=== PATIENT | female | born 1985 | race Caucasian/White ===

== ENCOUNTER 2021-01-05 12:28 | Outpatient (REF) | payer MEDICAID, SELFPAY ==
--- NOTE | ~2021-01-05 | XR_ITS ---
EXAMINATION: XR LEFT SHOULDER XR LUMBOSACRAL SPINE CLINICAL INFORMATION: Left shoulder and upper arm pain and low back pain. COMPARISON: None. TECHNIQUE: 3 views lumbosacral spine, 4 views left shoulder. FINDINGS: Left Shoulder: No bone, joint or soft tissue abnormality is seen. Lumbar Spine: Degenerative changes are present at L5-S1 with disc space narrowing, some sclerosis and osteophyte formation. At other levels, disc spaces are relatively well preserved. Some mild spondylitic endplate changes present with osteophytes at the superior endplates of L3 and L4. XR/XR lumbar spine 2-3V IMPRESSION: Normal left shoulder. Degenerative changes L5-S1.
--- NOTE | ~2021-01-05 | XR_ITS ---
EXAMINATION: XR LEFT SHOULDER XR LUMBOSACRAL SPINE CLINICAL INFORMATION: Left shoulder and upper arm pain and low back pain. COMPARISON: None. TECHNIQUE: 3 views lumbosacral spine, 4 views left shoulder. FINDINGS: Left Shoulder: No bone, joint or soft tissue abnormality is seen. Lumbar Spine: Degenerative changes are present at L5-S1 with disc space narrowing, some sclerosis and osteophyte formation. At other levels, disc spaces are relatively well preserved. Some mild spondylitic endplate changes present with osteophytes at the superior endplates of L3 and L4. XR/XR shoulder LT min 2V IMPRESSION: Normal left shoulder. Degenerative changes L5-S1.
== END 2021-01-05 12:29 | disposition home or self-care (01) ==
LOC: HO.XRAY 12:28
PROVIDERS: PCP Nurse Practitioner Family; Visit Provider Emergency Medicine
DX: S39.92XA Unspecified injury of lower back, initial encounter (principal); S49.92XA Unspecified injury of left shoulder and upper arm, initial encounter; X58.XXXA Exposure to other specified factors, initial encounter; Y93.9 Activity, unspecified; Y92.9 Unspecified place or not applicable; Y99.9 Unspecified external cause status
CPT/HCPCS: 72100; 73030

== ENCOUNTER 2022-04-05 10:16 | Outpatient (REF) | payer MEDICAID, SELFPAY ==
--- NOTE | ~2022-04-05 | MM_ITS ---
EXAMINATION: MM DIAGNOSTIC DIGITAL BREAST TOMOSYNTHESIS, BILATERAL US DIAGNOSTIC ULTRASOUND BREAST, LEFT CLINICAL INFORMATION: 36-year-old with left breast pain for-5:00 position and an marble sized palpable area noted by patient lower inner quadrant x3 months. The lifetime risk of breast cancer based on the Tyrer-Cuzick Model is 12%. COMPARISON: No prior mammography. Comparison made with targeted left breast ultrasound 07/01/2008. TECHNIQUE: Digital breast tomosynthesis is performed in both the craniocaudal and mediolateral oblique views along with computer-aided detection (CAD). Synthesized 2D images are generated from the tomosynthesis. Additional spot left CC x2 views are obtained. Ultrasound left breast is targeted to the areas of clinical concern including lower outer and lower inner breast. Grayscale imaging and color Doppler are performed without and with harmonics. FINDINGS: There are scattered areas of fibroglandular density (ACR BI-RADS breast composition Category b). There is no significant mass or architectural abnormality. Small intramammary node seen lower central left breast and small benign-appearing oval circumscribed nodule central 11:30 right breast. No abnormal calcifications. The axilla and skin contours are unremarkable. No skin thickening or coarsening of the Evan's ligaments. No mammographic correlate for patient's symptoms. Ultrasound demonstrates no cystic or solid mass or architectural abnormality. No focal duct ectasia. No skin thickening or edema tracking in soft tissue planes. Results are discussed with the patient at time of visit. MM/MM tomosynthesis diagnostic BI IMPRESSION: -No mammographic evidence of malignancy or inflammatory changes. -Unremarkable targeted left breast ultrasound. ASSESSMENT: BI-RADS 2: Benign RECOMMENDATION: 1. Patient should be managed based on the clinical impression. If clinically indicated, further evaluation may be considered with surgical consult. Decision to proceed with biopsy should be based on clinical grounds and degree of clinical concern. 2. Otherwise, routine annual screening mammography, beginning age 40, or earlier as clinical risk factors warrant. This patient's information was entered into a reminder system with a target due date for their next mammogram.
== END 2022-04-05 10:17 | disposition home or self-care (01) ==
LOC: HO.MAMMO 10:16
PROVIDERS: PCP Internal Medicine; Visit Provider Internal Medicine
DX: N64.4 Mastodynia (principal); N63.24 Unspecified lump in the left breast, lower inner quadrant
CPT/HCPCS: 76642; 77062; 77066

== ENCOUNTER 2022-11-27 22:12 | Emergency (ER) | payer MEDICAID, SELFPAY ==
--- NOTE | ~2022-11-27 | XR_ITS ---
EXAMINATION: XR KNEE, LEFT CLINICAL INFORMATION: Pain status post injury COMPARISON: None available. TECHNIQUE: Two views of the left knee. FINDINGS: Bones and soft tissues are normal. No fracture but there is a small joint effusion. Alignment is anatomic. Joint spaces are well maintained. No abnormal soft tissue calcification. XR/XR knee LT 2V IMPRESSION: Small joint effusion. No fracture.
[2022-11-27 22:21] VITALS: BP 124/76; PULSE 105; RESP 18; TEMP 36.9; O2SAT 98; BMI 32.9
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
--- NOTE | 2022-11-27 23:49 | PC.NURSE ---
leg immobilizer to be placed by CEDRIC Burleson
[2022-11-27] MEDS: oxyCODONE HCl Immed Release 5 MG TABLET 10 MG PO (23:54)
--- NOTE | 2022-11-28 00:15 | PC.NURSE ---
Discharge instructions given and explained to pt no apparent distress aox4 ambulates safely/independently s/o at bedside
== END 2022-11-28 00:15 | disposition home or self-care (01) ==
PROVIDERS: Emergency Provider Internal Medicine; PCP Internal Medicine
DX: M23.92 Unspecified internal derangement of left knee (principal); M25.562 Pain in left knee
CPT/HCPCS: 73560; 99283; 99284

== ENCOUNTER 2023-05-24 10:04 | Emergency (ER) | payer MEDICAID, SELFPAY ==
[2023-05-24 11:00] VITALS: BP 128/77; PULSE 85; RESP 16; TEMP 36; O2SAT 100; BMI 34.6
== END 2023-05-24 13:42 | disposition left against medical advice (07) ==
PROVIDERS: Emergency Provider Emergency Medicine; PCP Internal Medicine
DX: H92.02 Otalgia, left ear (principal)
CPT/HCPCS: 99281

== ENCOUNTER 2023-11-24 18:05 | Outpatient (REF) | payer MEDICAID, SELFPAY ==
[2023-11-27 17:03] LABS: C. trachomatis RNA TMA NOT DETECTED (NOT DETECTED); N. gonorrhoeae RNA TMA NOT DETECTED (NOT DETECTED)
== END 2023-11-24 18:06 | disposition home or self-care (01) ==
LOC: HO.HHCLNP 18:05
PROVIDERS: Visit Provider Registered Nurse
DX: N93.9 Abnormal uterine and vaginal bleeding, unspecified (principal)
CPT/HCPCS: 36415; 81513; 87491; 87591

== ENCOUNTER 2023-12-04 12:43 | Outpatient (REF) | payer MEDICAID, SELFPAY ==
[2023-12-04 16:14] LABS: MANUAL DIFF FLAG NO
[2023-12-04 16:26] LABS: Basophils Absolute Auto 0.1 X10*3/uL (0.0-0.2); Basophils Percent Auto 0.9 % (0-2); Eosinophils Absolute Auto 0.4 X10*3/uL (0.0-0.4); Eosinophils Percent Auto 5.7 % (0-4); Hematocrit 32.5 % (37.0-47.0); Hemoglobin 10.5 g/dl (12.0-16.0); Imm Gran Abs Auto 0.02 X10*3/uL (0.00-0.03); Imm Gran Pct Auto 0.3 % (0.0-0.4); Lymphocytes Absolute Auto 2.1 X10*3/uL (1.2-4.9); Lymphocytes Percent Auto 27.2 % (20-40); Mean Corpuscular HGB Conc 32.3 g/dl (31.0-35.0); Mean Corpuscular Hemoglobin 25.7 pg (27.0-33.0); Mean Corpuscular Volume 79.5 fL (80.0-98.0); Mean Platelet Volume 11.8 fL (9.4-12.3); Monocytes Absolute Auto 0.6 X10*3/uL (0.1-1.2); Monocytes Percent Auto 8.1 % (2-11); Neutrophils Absolute Auto 4.5 x10*3/uL (2.0-8.3); Neutrophils Percent Auto 57.8 % (45-73); Platelet Count 371 X10*3/uL (160-400); Red Blood Count 4.09 X10*6/uL (4.20-5.50); Red Cell Distribution Width 17.6 % (11.0-16.0); White Blood Count 7.8 X10*3/uL (4.8-10.8)
[2023-12-04 17:00] LABS: Erythrocyte Sedimentation Rate 11 MM/HR (0-20)
[2023-12-04 17:05] LABS: Alanine Aminotransferase 13 U/L (0-31); Albumin Level 4.2 g/dL (3.5-5.0); Alkaline Phosphatase 59 U/L (39-117); Anion Gap 13 (12-20); Aspartate Amino Transferase 14 U/L (5-31); Bilirubin Total 0.2 mg/dL (0.0-1.0); Blood Urea Nitrogen 13 mg/dL (9-16); C Reactive Protein 0.25 mg/dL (< or = 0.50); Calcium 9.5 mg/dL (8.4-10.2); Carbon Dioxide 25 mmol/L (22-29); Chloride 109 mmol/L (96-108); Cholesterol 219 mg/dL (<200); Estimated Glomerular Filt Rate > 60; Glucose Random 91 mg/dL (60-115); HDL Cholesterol 59 mg/dL (>40); LDL Cholesterol Calculated 135 mg/dL (<100); Potassium 4.6 mmol/L (3.3-5.1); Sodium 142 mmol/L (135-145); Total Protein 7.5 g/dL (6.5-8.0); Triglycerides 126 mg/dL (<150)
[2023-12-04 17:09] LABS: TSH reflex Free T4 0.71 uIU/mL (0.32-4.0)
[2023-12-04 17:21] LABS: Rheumatoid Factor < 13.0 IU/mL (<15.0)
[2023-12-05 04:26] LABS: HBS Num1 0.19 mIU/mL (0-7.99); HBc Num1 0.11 S/CO (0.00-0.79); HBsAGNum1 0.33 S/CO (0.00-0.99); HIV AB/AG Nonreactive (Nonreactive); HIV Num 1 0.04 S/CO (0.00-0.99); Hepatitis B Core Antibody Nonreactive (Nonreactive); Hepatitis B Surface Antigen Negative (Negative); ~Hepatitis B Surface Antibody NONREACTIVE (Nonreactive); ~Hepatitis C Antibody Nonreactive (Nonreactive)
[2023-12-05 04:43] LABS: Hepatitis A Antibody IgM 0.16 Index (0-0.79); ~Hepatitis A Antibody IgM Nonreactive (Nonreactive)
[2023-12-05 12:23] LABS: RPR Rapid Plasma Reagin NON-REACTIVE (NON-REACTIVE)
[2023-12-05 15:38] LABS: Cyclic Citrullinated Peptide <16 UNITS
[2023-12-07 03:58] LABS: TS Negative Control Passed; TS Panel A 0; TS Panel B 1; TS Positive Control Passed; TSpotTB Negative (Negative)
== END 2023-12-04 12:44 | disposition home or self-care (01) ==
LOC: HO.HHCL 12:43
PROVIDERS: Visit Provider Registered Nurse
DX: Z00.00 Encounter for general adult medical examination without abnormal findings (principal); M79.671 Pain in right foot; M79.672 Pain in left foot
CPT/HCPCS: 36415; 80053; 80061; 84443; 85025; 85652; 86140; 86200; 86431; 86481; 86592; 86704; 86706; 86709; 86803; 87340; 87389

== ENCOUNTER 2024-05-27 14:32 | Outpatient (REF) | payer MEDICAID, SELFPAY ==
[2024-05-30 06:07] LABS: TS Negative Control Passed; TS Panel A 0; TS Panel B 0; TS Positive Control Passed; TSpotTB Negative (Negative)
== END 2024-05-27 14:33 | disposition home or self-care (01) ==
LOC: HO.HHCL 14:32
PROVIDERS: Visit Provider Registered Nurse
DX: Z00.00 Encounter for general adult medical examination without abnormal findings (principal)
CPT/HCPCS: 36415; 86481

== ENCOUNTER 2025-02-25 10:32 | Outpatient (REF) | payer MEDICAID, SELFPAY ==
[2025-02-25 11:42] LABS: Hemoglobin A1C 86.8920 umol/L; Total Hemoglobin (HGBA1C) 3163.9930 umol/L
[2025-02-25 12:09] LABS: Alanine Aminotransferase 41 U/L (0-31); Albumin Level 4.3 g/dL (3.5-5.0); Alkaline Phosphatase 68 U/L (39-117); Anion Gap 13 (12-20); Aspartate Amino Transferase 61 U/L (5-31); Blood Urea Nitrogen 13 mg/dL (9-16); Calcium 8.6 mg/dL (8.4-10.2); Carbon Dioxide 23 mmol/L (22-29); Chloride 109 mmol/L (96-108); Cholesterol 208 mg/dL (<200); Estimated Glomerular Filt Rate > 60; HDL Cholesterol 51 mg/dL (>40); Potassium 4.1 mmol/L (3.3-5.1); Sodium 141 mmol/L (135-145); Total Protein 7.2 g/dL (6.5-8.0); Triglycerides 233 mg/dL (<150)
[2025-03-04 22:43] LABS: Anti Nuclear Antibody Pattern Nuclear, Speckled; Anti Nuclear Antibody Screen POSITIVE (NEGATIVE); Anti Nuclear Antibody Titer 1:80 titer
== END 2025-02-25 10:33 | disposition home or self-care (01) ==
LOC: HO.HHCL 10:32
PROVIDERS: PCP Registered Nurse; Visit Provider Registered Nurse
DX: Z01.84 Encounter for antibody response examination (principal); E66.812 Obesity, class 2; Z68.37 Body mass index [BMI] 37.0-37.9, adult; R52 Pain, unspecified
CPT/HCPCS: 36415; 80053; 80061; 83036; 84443; 86038; 86039

== ENCOUNTER 2025-07-04 13:30 | Outpatient (REF) | payer MEDICAID, SELFPAY ==
--- OUTSIDE RECORDS SUMMARY | 2025-07-04 17:38 | XMS_ITS | Clinical Summary ---
Author Organization [employer] Address [address] [place] [address] Care Team Providers Care Cracking Machine Operator Name Role Phone Esthela Lainez [facility] Primary Care Provider [phone] Allergies No known active allergies Medications * This document contains information received from the source organization and may not represent a complete record from that organization. nicotine (Nicoderm CQ) 14 MG/24HR patch Place 1 patch on the skin 1 (one) time each day at the same time. 42 patch 3 Active Additional Information Patient not taking.Reported on 02/24/2025 nicotine polacrilex (Commit) 4 MG lozenge Dissolve 1 lozenge (4 mg) in the mouth every 2 (two) hours if needed for smoking cessation. 100 lozenge 3 Active Additional Information Patient not taking.Reported on 02/24/2025 acetaminophen (Tylenol) 500 MG tabletIndication s:Tendinitis Take 2 tablets (1,000 mg) by mouth every 6 (six) hours if needed for moderate pain or mild pain. 90 tablet 4 Active Additional Information Patient not taking.Reported on 02/24/2025 Levonorgestrel (Mirena, 52 MG,) 20 MCG/DAY intrauterine device by Intrauterine route. Active ibuprofen 800 MG tabletIndication s:Abnormal uterine bleeding Take 1 tablet by oral route every 8 hours during menses/heavy bleeding. Take with food. 60 tablet 1 4 Active Additional Information Patient not taking.Reported on 02/24/2025 DULoxetine (Cymbalta) [address] Sandhu ns:Fibromyalgia Take 1 capsule (20 mg) by mouth 2 times daily. Do not crush or chew. 60 capsule 11 5 026 Active Active Problems Problem Noted Date Diagnosed Date Severe episode of recurrent major depressive disorder, with psychotic features (CMS/HCC) 04/07/2025 Alcohol use disorder 04/07/2025 Cannabis use disorder 04/07/2025 SHANTHI (generalized anxiety disorder) 04/07/2025 Healthcare maintenance 01/01/2024 Overview (01/01/2024): Mammo: Routine Pap: Hx of abnormal pap-goes to [facility]. No records. Will request C-scope: Routine BMD: ROutine Multiple joint pain 09/19/2023 Overview (01/01/2024): + family hx of autoimmune disease. RA labs negative -CRP/RF/ESR/CRP/TSH/CCP IgG Tobacco dependence 05/23/2023 Vitamin D deficiency 08/29/2018 Allergic rhinitis 08/29/2018 Obesity 05/26/2016 Resolved Problems Problem Noted Date Diagnosed Date Resolved Date Viral gastroenteritis 09/19/20232023 Pain of breast 09/19/2023 01/01/2024 Large breasts 09/19/2023 11/23/2023 Induration of left breast 09/19/2023 Backache 09/19/2023 11/23/2023 Weakness of hand 08/29/2018 11/23/2023 Insomnia 08/29/2018 01/01/2024 Laceration of thumb 08/07/2017 11/23/19 24 Encounters * This document contains information received from the source organization and may not represent a complete record from that organization. Date Type Department Care Team Description 07/03/2025 Telephone [facility] MEDICINE [address] [place] [address] Esthela Lainez FNP tb test 05/08/2025 Telephone [facility] MEDICINE [address] [place] [address] Esthela Lainez FNP chart prep 04/09/2025 Patient Outreach [facility] MED[facility]INE [address] [place] [address] Esthela Lainez FNP Care Coordination ([facility] outreach for [facility] housing search-LVM ) 04/07/2025 2:30 PM EDT Telemedicine [facility] MEDICINE [address] [place], [place] [phone] [place], Esthela, PUMP ERECTOR Fibromyalgia (Primary Dx); Elevated liver enzymes; Mixed hyperlipidemia; Alcohol use disorder; Anxiety; Housing insecurity 04/07/2025 Travel from Last 3 Months Immunizations Immunization Administration Dates Next Due HepB-CpG 02/24/2025 Influenza injectable quadriv alent IIV4 with preservative 05/26/2016 Influenza injectable quadriv alent preservative free 08/21/2020,04/24/2019,08/29/2018 Influenza, IIV3, injectable 05/26/2008 Moderna Covid-19 Vaccine 6+ Bivalent 07/27/2022 Pfizer Covid-19 Vaccine 12+ 11/24/2023 Pneumococcal Conjugate PCV 20 02/24/2025 TD (adult), 2 Lf tetanus tox oid, preservative free, adsorbed 08/29/2018 Td (adult), 5 Lf tetanus tox oid, preservative free, adsorbed 04/01/2016 Tdap 05/26/2008 Family History Medical History Relation Name Comments Fibromyalgia Father Lupus Mother Lupus Sister Relation Name Status Comments Father Mother Sister Social History Tobacco Use Types Packs/Day Years Used Date Smoking Tobacco: Every Day Cigarettes Passive Smoke Exposure: Current Smokeless Tobacco: Never Tobacco Cessation:Ready to Q uit: Not Asked; Counseling Given: Not Answered Alcohol Use Standard Drinks/Week Comments Never 0 (1 standard drink = 0.6 oz pur e alcohol) Depression Answer Date Recorded Patient Health Questionnaire-9 Score 18 04/07/2025 Patient Health Questionnaire-9 Score 18 04/07/2025 Last PHQ-9: Questionnaire Data Not on file 0 04/07/2025 Housing Stability Answer Date Recorded What is your housing situation today? I have housing today, but I am worried about losing housing in the future 12/03/[address] you li ve. Do you have problems with any of the following? None of the above 12/03/2024 Food Insecurity Answer Date Recorded Within the past 12 months, y ou worried that your food would run out before you got money to buy more: Sometimes True 2024 Within the past 12 months,th e food you bought just didn't last and you didn't have enough money to get more: Sometimes True 12/03/2024 Transportation Answer Date Recorded In the past 12 months, has l ack of transportation kept you from medical appts, meetings, work or from getting things needed for daily living? No 12/03/2024 Utilities Answer Date Recorded In the past 12 months, has t he electric, gas, oil or water company threatened to shut off services in your home? No 12/03/2024 Depression Answer Date Recorded Patient Health Questionnaire-2 Score 5 04/07/2025 Internet Access Answer Date Recorded Internet Access Q1 Yes 12/03/2024 Internet Access Q2 Not on file 12/03/2024 Comments No Intention Date Recorded No desire to become (finding) 0 02/24/2025 Sex and Gender Information Value Date Recorded Sex Assigned at Female 05/30/2022 10:18 AM EDT Legal Sex Female 10:18 AM EDT Gender Identity Female 05/30/2022 10:18 AM EDT Sexual Orientation Straight 05/30/2022 10 :18 AM EDT Last Filed Vital Signs Vital Sign Reading Time Taken Comments Blood Pressure 120/86 02/24/2025 1:57 PM EDT Pulse 60 02/24/2025 1:57 PM EDT Temperature 37.1 C (98.7 F) 02/24/2025 1:57 PM EDT Respiratory Rate 20 02/24/2025 1:57 PM EDT Oxygen Saturation 99% 11/24/2023 9:40 AM EDT Inhaled Oxygen Concentration - - Weight 92.2 kg (203 lb 3.2 oz) 02/24/2025 1:57 P M EDT Height 157.5 cm (5' 2 ) 02/24/2025 1:57 PM EDT Body Mass Index 37.17 02/24/2025 1:57 PM EDT Plan of Treatment Upcoming Encounters Date Type Department Care Team (Late st Contact Info) Description 08/12/2025 2:00 PM EST Nutrition [facility] DIABETES/NUTRITION [address] [place] [address] [place] [address] Health Maintenance Due Date Last Done Comments HPV Vaccines (1 - 3-dose series) 2000 Pap Smear 2006 Cervical Cancer Screening 2015 HPV/Cotest 2015 Hepatitis B Vaccines (2 of 2 - CpG 2-dose series) 03/24/2025 02/24/2025 COVID-19 Vaccine (6 - season) 2025 11/24/2023, 07/27/2022, 08/13/2021, Additional history exists Influenza Vaccine (#1) 2025 , 04/24/2019, 08/29/2018, Additional history exists Depression Monitoring 10/05/2025 04/07/2025, 025 SDOH Screening 12/03/2025 12/03/2024 Alcohol/Substance Use Screening 02/24/2026 02/24/2025 Disability Screening 02/24/2026 02/24/2025 Family Planning (PISQ) 02/26/2026 02/26/2025 Tobacco Screening 04/09/2026 04/09/2025 DTaP/Tdap/Td Vaccines (4 - Td or Tdap) 08/29/2028 08/29/2018, 04/01/2016, 05/26/2008 Lipid Panel 02/25/2030 02/25/2025, 12/04/2023 Zoster Vaccines (1 of 2) 2035 RSV Patients and Patients Aged 60 years or older (1 - 1-dose 75+ series) 2060 HIV Screening Completed 12/04/2023, 09/15/2020 Hepatitis C Screening Completed 12/04/2023 Pneumococcal Vaccine: Pediatrics (0 to 5 Years) and At-Risk Patients (6 to 49) Years Completed 02/24/2025 HIB Vaccines Aged Out No longer eligi ble based on patient's age to complete this topic Hepatitis A Vaccines Aged Out No long er eligible based on patient's age to complete this topic IPV Vaccines Aged Out No longer eligi ble based on patient's age to complete this topic Meningococcal B Vaccine Aged Out No l onger eligible based on patient's age to complete this topic Meningococcal Vaccine Aged Out No diego suellen eligible based on patient's age to complete this topic RSV under 20 months Aged Out No longe r eligible based on patient's age to complete this topic Rotavirus Vaccines Aged Out No longer eligible based on patient's age to complete this topic Procedures Procedure Name Priority Date/Time Associated Diagnosis Comments LIPID PANEL, STANDARD Routine 02/25/2025 10:38 AM EDT Class 2 obesity due to excess calories with body mass index (BMI) of 37.0 to 37.9 in adult, unspecified whether serious comorbidity present HEPATITIS PANEL, GENERAL Routine 12/04/2023 12:49 PM EDT Healthcare maintenance HIV 1/2 ANTIGEN/ANTIBODY, FOURTH GENERATION W/RFL Routine 12/04/2023 12:49 PM EDT Healthcare maintenance from Last 3 Months or Most Recently Relevant to Health Maintenance Results * (ABNORMAL) Lipid Panel, Standard (02/25/2025 10:38 AM EDT) Triglycerides 233(H) <150 mg/dL [facility] Comment:Desirable Triglyceri de: less than 150 mg/dLBorderline High Triglyceride 150-199 mg/dLHigh Triglyceride: 200-499 mg/dLVery High Triglyceride: greater than or equal to 5OO mg/dL Cholesterol 208(H) <200 mg/dL [facility] Comment:Desirable Cholestero l: less than 200 mg/dLBorderline High Cholesterol: 200-239 mg/dLHigh Cholesterol: greater than 239 mg/dL LDL Cholesterol Calculated 111(H) <100 mg/dL [facility] Comment:Desirable LDL: less than 100 mg/dLNear Optimal/Above Optimal LDL: 110- 129 mg/dLBorderline High LDL: 130-159 mg/dLHigh LDL: 160-189 mg/dLVery High LDL: greater than or equal to 190 mg/dL HDL Cholesterol 51 >40 mg/dL [facility] Comment:Desirable HDL: great er than 40 mg/dL Note: This HDL assay may give artificially low results in patients with liver disease. Blood Venous blood specimen / Unknown 02/25/2025 10:38 AM EDT 02/25/2025 11:17 AM EDT [facility] LAB BLOOD ORDERABLES Final Re sult [facility] [address] [place] [address] [phone] * Hepatitis A,B,C Profile (12/04/2023 12:49 PM EDT) Hepatitis A IgM Nonreactive Nonreactive [facility] Comment:IgM antibodies to MOSQUERA V not detected; does not exclude earlyacute or recovered HAV infection. ~Hepatitis B Surface Antibody NONREACTIVE Nonreactive [facility] Comment:Nonreactive: < 8.00 mIU/mL Hepatitis B Core Antibody Nonreactive Nonreactive [facility] Hepatitis C Antibody Nonreactive Nonreactive [facility] Comment:Antibodies to HCV no t detected; does not exclude early acuteHCV infection. Hepatitis B Surface Ag Negative Negative [facility] Blood Venous blood specimen / Unknown 12/04/2023 12:49 PM EDT 12/04/2023 4:10 PM EDT [facility] LAB BLOOD ORDERABLES Final Re sult Performing Organization Address [facility] Co de Phone Number [facility] [address] [place] [address] [phone] * HIV-1/2 Antigen and Antibodies, Fourth Generation, with Reflexes (12/04/2023 12:49 PM EDT) HIV AB/AG Nonreactive Nonreactive [facility] Comment:HIV-1 p24 Ag and/or HIV-1/HIV-2 Ab not detected.A test result that is nonreactive does not exclude thepossibility of exposure to or infection with HIV-1 and/orHIV-2. Nonreactive results in this assay for individualswith prior exposure to HIV-1 and/or HIV-2 may be due toantigen and antibody levels that are below the limit ofdetection of this assay.The [employer] HIV Ag/Ab Combo assay result andsupplemental assay results should be interpreted inconjunction with the patient's clinical presentation,history and other laboratory results. If the results areinconsistent with clinical evidence, additional testing issuggested to confirm the result. Blood Venous blood specimen / Unknown 12/04/2023 12:49 PM EDT 12/04/2023 4:10 PM EDT [facility] LAB BLOOD ORDERABLES Final Re sult [facility] [address] [place] [address] [phone] from Last 3 Months or Most Recently Relevant to Health Maintenance Insurance [employer] C3 Care Teams Cracking Machine Operator Relationship Specialty Start Date End Date [facility] [address] [place] [address] PCP - General Family Medicine 03/28/22
--- OUTSIDE RECORDS SUMMARY | 2025-07-04 17:38 | XMS_ITS | Encounter Summary ---
Author Organization [employer] Address [address] [place] [address] Care Team Providers Care Community Relations Liaison Name Role Phone Migel [facility] Primary Care Provider [phone] Reason for Visit * Reason Onset Date Comments tb test 07/03/2025 Encounter Details Date Type Department Care Team ([facility] st Contact Info) Description 07/03/2025 Telephone [facility] MEDICINE [address] [place] [address] [place], [facility] [address] [place] [address] tb test Social History Tobacco Use Types Packs/Day Years Used Date Smoking Tobacco: Every Day Cigarettes Passive Smoke Exposure: Current Smokeless Tobacco: Never Alcohol Use Standard Drinks/Week Comments Never 0 [...] Q2 Not on file 12/03/2024 Comments No Sex and Gender Information Value Date Recorded Sex Assigned at Female 05/30/2022 10:18 AM EDT Legal Sex Female 10:18 AM EDT Gender Identity Female 05/30/2022 10:18 AM EDT Sexual Orientation Straight 05/30/2022 10 :18 AM EDT documented as of this encounter Miscellaneous Notes * Telephone Encounter - Azalia George RN - 07/03/2025 4:35 PM EST Most recent tuberculosis test negative 2023. Repeat ordered. Pt. Will come to lab and is awareresults take 3-5 days * Telephone Encounter - Johann Peralta - 07/03/2025 3:39 PM EST Tc from pt requesting a order for tuberculosis test for work Contact pt at [phone] ([email or web address]) documented in this encounter Plan of Treatment Upcoming Encounters Date Type Department Care Team (Late st Contact Info) Description 08/12/2025 2:00 PM EST Nutrition [facility] DIABETES/NUTRITION [address] [place], [place] [phone] Maureen Espinosa [address] [place], [place] [phone] Scheduled Orders Name Type Priority Associated Diagnoses Orde r Schedule T-SPOT .TB Lab Routine Screening examination for pulmonary tuberculosis Expected: 07/03/2025 (Approximate), Expires: 07/03/2026 documented as of this encounter Visit Diagnoses Diagnosis Screening examination for pulmonary tuberculosis documented in this encounter Additional Health Concerns Assessment Noted Time PHQ-9 Depression Total Score: 18 025 3:47 PM EDT documented as of this encounter Care Teams Community Relations Liaison Relationship Specialty Start Date End Date Esthela Lainez FNP [address] [place] [phone] PCP - General Family Medicine 03/28/22 documented as of this encounter
--- OUTSIDE RECORDS SUMMARY | 2025-07-04 17:38 | XMS_ITS | Encounter Summary ---
Author Organization [employer] Address [address] [place] [address] [address] [place] [address] Care Team Providers Care Instructor Extension Work Name Role Phone [place] [facility] Primary Care Provider [phone] Reason for Visit * Reason Onset Date Comments Appointment Request 07/13/2023 Encounter Details Date Type Department Care Team (Late Contact Info) Description 07/13/2023 Telephone [facility] MEDICINE [address] [place] [address] [facility] [address] [place] [address] Appointment Request Social History Tobacco Use Types Packs/Day Years Used Date Smoking Tobacco: Every Day Cigarettes Smokeless Tobacco: Never Comments Unknown Sex and Gender Information Value Date Recorded Sex Assigned at Female 05/30/2022 10:18 AM EDT Legal Sex Female 10:18 AM EDT Gender Identity Female 05/30/2022 10:18 AM EDT Sexual Orientation Straight 05/30/2022 10 :18 AM EDT documented as of this encounter Miscellaneous Notes * Telephone Encounter - Steve Teixeira - 07/13/2023 3:11 PM EST Tc from patient requesting a physical appt for work with 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
[2025-07-07 09:04] LABS: TS Negative Control Passed; TS Panel A 0; TS Panel B 0; TS Positive Control Passed; TSpotTB Negative (Negative)
== END 2025-07-04 13:31 | disposition home or self-care (01) ==
LOC: HO.HHCL 13:30
PROVIDERS: PCP Registered Nurse; Visit Provider Registered Nurse
DX: Z11.1 Encounter for screening for respiratory tuberculosis (principal)
CPT/HCPCS: 36415; 86481